=== PATIENT | male | born 1985 | race Caucasian/White ===

== ENCOUNTER 2017-07-20 12:08 | Emergency (ER) | payer MEDICAID ==
[2017-07-20 12:13] VITALS: BP 121/92
== END 2017-07-20 13:09 | disposition home or self-care (01) ==
LOC: ED 12:08
DX: G51.0 Bell's palsy (principal); F17.210 Nicotine dependence, cigarettes, uncomplicated; Z71.6 Tobacco abuse counseling
CPT/HCPCS: 99406